=== PATIENT | male | born 1970 | race Caucasian/White ===

== ENCOUNTER → 2024-02-04 15:13 | Outpatient (REF) | payer BC, SELFPAY | LOC: RAD 15:13 | PROVIDERS: ATTENDING PHYSICIAN Physician Assistant Surgical | DX: S05.50XA Penetrating wound with foreign body of unspecified eyeball, initial encounter (principal) | CPT/HCPCS: 70030 ==

== ENCOUNTER → 2024-04-14 13:29 | Outpatient (REF) | payer OTHER, SELFPAY | LOC: UCDH 13:29 | PROVIDERS: ATTENDING PHYSICIAN Emergency Medicine; FAMILY PHYSICIAN Physician Assistant | DX: S49.92XA Unspecified injury of left shoulder and upper arm, initial encounter (principal) | CPT/HCPCS: 73030 ==

== ENCOUNTER 2025-04-05 06:36 | Day surgery (SDC) | payer BC, SELFPAY | END 2025-04-05 13:56 | disposition home or self-care (01) | LOC: GI 06:36 | PROVIDERS: ATTENDING PHYSICIAN Internal Medicine Gastroenterology | DX: K63.5 Polyp of colon (principal); K57.30 Diverticulosis of large intestine without perforation or abscess without bleeding; Q43.8 Other specified congenital malformations of intestine; K64.8 Other hemorrhoids | CPT/HCPCS: 45385; 88305 ==